=== PATIENT | female | born 1985 | race Two or more races ===

== ENCOUNTER 2024-02-08 08:24 | Emergency (ER) | payer OTHER, MEDICAID ==
[~2024-02-08] VITALS: Ht 160 cm; Wt 70.0 kg
[2024-02-08 10:35] LABS: Urine Bacteria None Seen /hpf (None Seen)
[2024-02-08 10:51] LABS: Basophils # (auto) 0 10 ^3/uL (0-0.2); Basophils % (auto) 0.6 % (0.0-2.0); Eosinophils # (auto) 0.3 10 ^3/uL (0-0.8); Eosinophils % (auto) 4.6 % (0.0-7.0); Hematocrit 43.2 % (36.0-46.0); Hemoglobin 14.8 g/dL (12.2-16.2); Lymphocytes # (auto) 1.6 10 ^3/uL (0.4-5.4); Lymphocytes % (auto) 25.5 % (10.0-50.0); Mean Corpuscular Hemoglobin 32.9 pg (28.0-32.0); Mean Corpuscular Hgb Conc. 34.1 g/dL (32.0-36.0); Mean Corpuscular Volume 96.3 fL (80.0-100.0); Monocytes # (auto) 0.6 10 ^3/uL (0-1.3); Monocytes % (auto) 8.6 % (0.0-12.0); Neutrophils # (auto) 3.9 10 ^3/uL (1.6-8.6); Neutrophils % (auto) 60.7 % (37.0-80.0); Nucleated Red Blood Cells % 0.2 %; Red Blood Cells 4.49 10^6/uL (4.0-5.20); Red Cell Distribution Width 12.6 % (11.8-14.3); White Blood Cell 6.4 10^3/uL (4.4-10.8)
[2024-02-08] MEDS: SODIUM CHLORIDE 0.9% 1,000 ML IV ONE (10:55)
[2024-02-08 11:11] LABS: Alanine Aminotransferase 28 U/L (7-40); Albumin 4.5 g/dL (3.2-4.8); Alkaline Phosphatase 59 U/L (46-116); Anion Gap 7 (5-15); Aspartate Aminotransferase 22 U/L (13-40); BUN/Creatinine Ratio 10.3 (10.0-20.0); Bilirubin, Total 0.8 mg/dL (0.2-1.0); Blood Urea Nitrogen 7 mg/dL (9-23); Calcium 9.5 mg/dL (8.5-10.1); Carbon Dioxide 23 mmol/L (20-30); Chloride 109 mmol/L (98-107); Glucose 88 mg/dL (74-106); Potassium 3.9 mmol/L (3.5-5.1); Sodium 139 mmol/L (136-145); Total Protein 6.5 g/dL (5.7-8.2)
[2024-02-08 11:27] LABS: Urine Blood Negative /uL (Negative); Urine Clarity Turbid (Clear); Urine Color Light-Yellow (Yellow); Urine Protein, UAD Negative (Negative); Urine Specific Gravity 1.015 (1.001-1.035); Urine Urobilinogen Normal (Negative); Urine WBC 1 /hpf (0 - 5); Urine pH 8.5 (5.0-9.0)
[2024-02-08 12:03] LABS: Lipase 36 U/L (12-53)
[2024-02-08] MEDS: cefTRIAXone 1GM/50ML D5W 50 ML IV ONE (13:03)
[2024-02-08] MEDS: fentaNYL CITRATE 100 MCG/2 ML VL IV ONE (13:41)
[2024-02-08 13:43] LABS: Amphetamine Screen, Urine Neg (NEGATIVE); Barbiturate Scree,Urine Neg (NEGATIVE); Benzodiazephine Screen, Urine Neg (NEGATIVE); Cocaine Screen, Urine Neg (NEGATIVE)
[2024-02-08 13:44] LABS: Cannabinoid Screen, Urine Neg (NEGATIVE); Opiate Scree,Urine Neg (NEGATIVE); Phencyclidine Screen, Urine Neg (NEGATIVE)
[2024-02-08 15:54] VITALS: TEMP 97.8; O2SAT 99
[2024-02-08 16:04] VITALS: BP 142/87; PULSE 87; RESP 16
== END 2024-02-08 17:57 | disposition home or self-care (01) ==
LOC: ER 08:24
DX: R10.9 Unspecified abdominal pain (principal); R11.2 Nausea with vomiting, unspecified; R19.7 Diarrhea, unspecified; K51.90 Ulcerative colitis, unspecified, without complications; Z98.51 Tubal ligation status; Z87.442 Personal history of urinary calculi
CPT/HCPCS: 36415; 74176; 80053; 80307; 81001; 83605; 83690; 84484; 85025; 93005; 96361; 96365; 96375; 99285; J0696; J3010; J7030

== ENCOUNTER 2024-05-24 10:02 | Emergency (ER) | payer OTHER, MEDICAID ==
[~2024-05-24] VITALS: Ht 160 cm; Wt 68.9 kg
[2024-05-24 10:59] LABS: Basophils # (auto) 0.1 10 ^3/uL (0-0.2); Basophils % (auto) 0.7 % (0.0-2.0); Eosinophils # (auto) 0.3 10 ^3/uL (0-0.8); Eosinophils % (auto) 4.3 % (0.0-7.0); Hematocrit 42.7 % (36.0-46.0); Hemoglobin 14.6 g/dL (12.2-16.2); Lymphocytes # (auto) 1.5 10 ^3/uL (0.4-5.4); Lymphocytes % (auto) 21.3 % (10.0-50.0); Mean Corpuscular Hemoglobin 33.9 pg (28.0-32.0); Mean Corpuscular Hgb Conc. 34.2 g/dL (32.0-36.0); Mean Corpuscular Volume 99.1 fL (80.0-100.0); Monocytes # (auto) 0.6 10 ^3/uL (0-1.3); Monocytes % (auto) 8.1 % (0.0-12.0); Neutrophils # (auto) 4.7 10 ^3/uL (1.6-8.6); Neutrophils % (auto) 65.6 % (37.0-80.0); Nucleated Red Blood Cells % 0.2 %; Red Blood Cells 4.31 10^6/uL (4.0-5.20); Red Cell Distribution Width 13.6 % (11.8-14.3); White Blood Cell 7.2 10^3/uL (4.4-10.8)
[2024-05-24 11:13] LABS: Chloride 109 mmol/L (98-107); Sodium 140 mmol/L (136-145)
[2024-05-24 11:14] LABS: Anion Gap 8 (5-15); Calcium 9.2 mg/dL (8.7-10.4); Carbon Dioxide 23 mmol/L (20-30)
[2024-05-24 11:19] LABS: BUN/Creatinine Ratio 9.9 (10.0-20.0); Blood Urea Nitrogen 8 mg/dL (9-23); Glucose 91 mg/dL (74-106)
[2024-05-24 11:29] LABS: Urine Bacteria FEW /hpf (None Seen); Urine Blood 3+ /uL (Negative); Urine Clarity Clear (Clear); Urine Color Light-Red (Yellow); Urine Protein, UAD 1+ (Negative); Urine Specific Gravity 1.007 (1.001-1.035); Urine Urobilinogen Normal (Negative); Urine WBC 10 /hpf (0 - 5); Urine pH 7.5 (5.0-9.0)
[2024-05-24 12:20] VITALS: BP 107/75; PULSE 81; RESP 12; TEMP 98.4; O2SAT 100
[2024-05-24] MEDS: KETOROLAC TROMETH 60MG/2ML VIAL IM ONE (12:20)
[2024-05-24] MEDS ORDERED: NAP500T PO (12:38)
== END 2024-05-24 12:44 | disposition home or self-care (01) ==
LOC: ER 10:02
DX: N92.0 Excessive and frequent menstruation with regular cycle (principal); Z32.02 Encounter for pregnancy test, result negative; Z98.51 Tubal ligation status
CPT/HCPCS: 36415; 76830; 76856; 80048; 81001; 81025; 85025; 96372; 99285; J1885

== ENCOUNTER 2024-12-16 08:49 | Emergency (ER) | payer MEDICAID, OTHER ==
[~2024-12-16] VITALS: Ht 160 cm; Wt 68.0 kg
[~2024-12-16 08:49] MED LIST: NAP500T PO
[2024-12-16 09:15] LABS: Urine Bacteria None Seen /hpf (None Seen)
[2024-12-16 09:25] VITALS: BP 118/71; PULSE 89; RESP 16; TEMP 98.2; O2SAT 98
[2024-12-16 09:41] LABS: Urine Blood Negative /uL (Negative); Urine Clarity Turbid (Clear); Urine Color Light-Yellow (Yellow); Urine Protein, UAD Negative (Negative); Urine Specific Gravity 1.018 (1.001-1.035); Urine Squamous Epithelial Cell MOD /hpf (<5); Urine Urobilinogen Normal (Negative); Urine WBC 3 /HPF (0-5); Urine pH 8.5 (5.0-9.0)
[2024-12-16] MEDS: cefTRIAXone SOD 1,000 MG VL IM ONE (10:11)
[2024-12-16] MEDS: KETOROLAC TROMETH 30 MG/ML 1ML VIAL IM ONE (10:11)
[2024-12-16] MEDS ORDERED: CIPR-173 PO (10:12)
--- NOTE | 2024-12-16 10:12 | ED.PDOC ---
TECHNICAL SUPPORT INTERNSHIP HPI Comments Patient complaining of vaginal pain that started at 3:00 a.m. this morning. States she tried to urinate and had diffuse vaginal and pelvic pain. States she tried to defecate and had similar pains with sitting. States the entire area is tender to the touch and even with just sitting. Unable to sit on her bottom. Patient denies any trauma to the area. Was sexually active three or four days ago. States her last menstrual was 12/01/2024. States she was vaginal disc for menstruation, she did remove and states no foreign body should be present. Patient denies any past history of vaginal pain like this. Nothing makes it better, Chief Complaint: Vaginal Bleed Time Seen by MD: 09:10 Reviewed Notes: Nurses Notes Allergies: Coded Allergies: NO KNOWN ALLERGIES (Unverified , 02/08/24) per patient Home Meds Active Scripts Naproxen (NAPROSYN TABLET) 500 Mg Tb, 1 TAB PO BID, #30 TAB Prov:CHERIE SUN 05/24/24 Information Source: Patient Past Medical History PAST MEDICAL HISTORY: Denies Surgical History: Tubal Ligation NATURAL GAS TRADER History: No Pertinent NATURAL GAS TRADER History Family History Family History: Reviewed,noncontributory to illness Social History Smoker: Non-Smoker Alcohol: Denies ETOH Use Drugs: Denies Drug Use Lives In: Home Constitutional: denies: chills, diaphoresis, fatigue, fever, malaise, sweats, weakness, others EENTM: denies: blurred vision, double vision, ear bleeding, ear discharge, ear drainage, ear pain, ear ringing, eye pain, eye redness, hearing loss, mouth pain, mouth swelling, nasal discharge, nose bleeding, nose congestion, nose pain, photophobia, tearing, throat pain, throat swelling, voice changes, others Respiratory: denies: cough, hemoptysis, orthopnea, SOB at rest, shortness of breath, SOB with excertion, stridor, wheezing, others Cardiovascular: denies: chest pain, dizzy spells, diaphoresis, Dyspnea on exertion, edema, irregular heart beat, left arm pain, lightheadedness, palpitations, PND, syncope, others Gastrointestinal: denies: abdomen distended, abdominal pain, blood streaked bowels, constipated, diarrhea, dysphagia, difficulty swallowing, hematemesis, melena, nausea, poor appetite, poor fluid intake, rectal bleeding, rectal pain, vomiting, others Genitourinary: reports: dyspareunia Neurological: denies: dizziness, fainting, headache, left sided numbness, left sided weakness, numbness, paresthesia, pre-existing deficit, right sided numbness, right sided weakness, seizure, speech problems, tingling, tremors, weakness, others Musculoskeletal: denies: back pain, gout, joint pain, joint swelling, muscle pain, muscle stiffness, neck pain, others Integumetry: denies: bruises, change in color, change in hair/nails, dryness, laceration, lesions, lumps, rash, wounds, others Physical Exam General Appearance: Moderate Distress, Normal HEENT: Normal ENT Inspection, Pharynx Normal, TMs Normal Neck: Full Range of Motion, Non-Tender, Normal, Normal Inspection Respiratory: Chest Non-Tender, Lungs Clear, No Accessory Muscle Use, No Respiratory Distress, Normal Breath Sounds Cardiovascular: No Edema, No JVD, No Murmur, No Gallop, Normal Peripheral Pulses, Regular Rate/Rhythm Breast Exam: Deferred Gastrointestinal: No Organomegaly, Non Tender, No Pulsatile Mass, Normal Bowel Sounds, Soft Genitalia: Deferred Pelvic: No Masses, Normal External Exam Rectal: Deferred Extremities: No calf tenderness, Normal capillary refill, Normal inspection, Normal range of motion, Non-tender, No pedal edema Musculoskeletal : Apperance: Normal Neurologic: Alert, bridge painter helper II-XII nml as Tested, No Motor Deficits, Normal Affect, Normal Mood, No Sensory Deficits Cerebellar Function: Normal Reflexes: Normal Skin: Dry, Normal Color, Warm Lymphatic: No Adenopathy Was a procedure done? Was a procedure done?: No Differential Diagnosis (NATURAL GAS TRADER) Vaginal Bleeding: Dysmenorrhea, Ectopic , Hormonal, Menorrhagia, UTI, Vaginitis X-Ray, Labs, Meds, VS Vital Signs Date Time Temp Pulse Resp B/P (MAP) Pulse Ox O2 Delivery O2 Flow Rate FiO2 12/16/24 09:25 89 16 98 Room Air 12/16/24 09:25 98.2 89 16 118/71 (87) 98 98.2 12/16/24 08:57 98.2 89 16 118/71 (87) 98 Lab Test 12/16/24 09:11 Range/Units Urine Color Light-yellow Yellow Urine Clarity Turbid H Clear Urine pH 8.5 5.0-9.0 Urine Specific [place] 1.018 1.001-1.035 Urine Protein Negative Negative Urine Ketones Negative Negative Urine Blood Negative Negative /uL Urine Nitrite Negative Negative Urine Bilirubin Negative Negative Urine Urobilinogen Normal Negative mg/dL Urine Leukocyte Esterase Trace Negative /uL Urine RBC 1 0 - 4 /hpf Urine Microscopic WBC 3 0-5 /HPF Urine Squamous Epithelial Cells Mod <5 /hpf Urine Bacteria None seen None Seen /hpf Urine Glucose Normal Normal mg/dL X-Ray, Labs, Meds, VS Comment Imaging: X-rays and CT scans were reviewed and interpreted by this provider, imaging shows no fractures and no pathological disease. Pending radiology review. Laboratory: Labs reviewed and interpreted by this provider. No significant abnormalities noted. Patient has prior medical visits reviewed. Med reconciliation performed Vital signs reviewed Time of 1ST Reevaluation: 10:12 Reevaluation 1ST: Improved Patient Education/Counseling: Diagnosis, Treatment, Need For Follow Up (Patient advised to follow up in 48 hours for recheck.) Family Education/Counseling: Diagnosis Departure 1 Departure Time of Disposition: 10:11 Impression: Primary Impression: Vaginal pain Disposition: 01 HOME / SELF CARE / HOMELESS Condition: Fair e-Prescriptions Ciprofloxacin Hcl (Cipro) 500 Mg Tab 1 TAB PO BID, #14 TAB Prov: NADINE HOSKINS 12/16/24 Discharged With: Self Critical Care Note Critical Care Time?: No Stability Stability form required: No Heart Score Heart Score: Heart Score Response (Comments) Value History N/A 0 EKG N/A 0 Age N/A 0 Risk Factors N/A 0 Troponin N/A 0 Total 0 NADINE HOSKINS Dec 16, 2024 10:12
== END 2024-12-16 10:19 | disposition home or self-care (01) ==
LOC: ER 08:49
DX: R10.2 Pelvic and perineal pain (principal); N93.9 Abnormal uterine and vaginal bleeding, unspecified; Z98.51 Tubal ligation status
CPT/HCPCS: 81001; 96372; 99284; J0696; J1885

== ENCOUNTER 2025-09-20 11:23 | Inpatient (IN) | payer OTHER, MEDICAID ==
[~2025-09-20] VITALS: Ht 160 cm; Wt 65.0 kg
[~2025-09-20 11:23] MED LIST changes: +CIPR-173 PO
--- NOTE | 2025-09-20 12:08 | ED.PDOC ---
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 PATIENT STATES SHE HAS BEEN EXPERIENCING PELVIC PAIN FOR THE PAST 3 DAYS. PATIENT REPORTS HER PAIN INITIALLY STARTED A MILD PRESSURE SENSATION, BUT BECAME WORSE TODAY, PROMPTING HER TO COME TO THE ED FOR EVALUATION. PATIENT NOTES THAT SHE WENT TO AN URGENT CARE PRIOR TO THIS ED VISIT 3 DAYS WHERE A URINE TEST WAS DONE WHICH WAS NORMAL, BUT WAS INSTRUCTED TO GO TO THE ED FOR A POSSIBLE ULTRASOUND. PATIENT DENIES DYSURIA, HEMATURIA, VAGINAL DISCHARGE, FLANK PAIN, FEVER, CHILLS, SHORTNESS OF BREATH, CHEST PAIN, ABDOMINAL PAIN, NAUSEA, VOMITING, HEADACHE, OR OTHER COMPLAINTS. NO OTHER SYMPTOMS OR MODIFYING FACTORS AT THIS TIME. PATIENT IS ALERT, ORIENTED X 4, AND HAS STEADY GAIT. Chief Complaint: Pelvic Pain Time Seen by MD: 11:31 Reviewed Notes: Nurses Notes, Medications, Allergies Allergies: Coded Allergies: NO KNOWN ALLERGIES (Unverified , 02/08/24) per patient Home Meds Active Scripts Ciprofloxacin Hcl (Cipro) 500 Mg Tab, 1 TAB PO BID, #14 TAB Prov:NADINE JACOB 12/16/24 Naproxen (NAPROSYN TABLET) 500 Mg Tb, 1 TAB PO BID, #30 TAB Prov:CHERIE SUN 05/24/24 Information Source: Patient Mode of Arrival: Ambulatory Timing: Days Prehospital treatment: None Severity: Mild, Moderate Vaginal Discharge: None Vaginal Lesions: None Vaginal Mass: None Onset Of Mass/Bleeding: Spontaneous Sexual Activity: Neither Last Consensual [place]: Unknown Control: None Blood Type: Unknown Symptoms of Possible : None Associated Signs and Symptoms: Other (PELVIC PAIN) Past Medical History PAST MEDICAL HISTORY: Anxiety, Asthma Surgical History: Tubal Ligation PRINCIPAL WEB DEVELOPER History: No Pertinent PRINCIPAL WEB DEVELOPER History Family History Family History: Reviewed,noncontributory to illness Social History Smoker: Non-Smoker Alcohol: Denies ETOH Use Drugs: Denies Drug Use Lives In: Home Constitutional: denies: chills, diaphoresis, fatigue, fever, malaise, sweats, weakness, others EENTM: denies: blurred vision, double vision, ear bleeding, ear discharge, ear drainage, ear pain, ear ringing, eye pain, eye redness, hearing loss, mouth pain, mouth swelling, nasal discharge, nose bleeding, nose congestion, nose pain, photophobia, tearing, throat pain, throat swelling, voice changes, others Respiratory: denies: cough, hemoptysis, orthopnea, SOB at rest, shortness of breath, SOB with excertion, stridor, wheezing, others Cardiovascular: denies: chest pain, dizzy spells, diaphoresis, Dyspnea on exertion, edema, irregular heart beat, left arm pain, lightheadedness, palpitations, PND, syncope, others Gastrointestinal: denies: abdomen distended, abdominal pain, blood streaked bowels, constipated, diarrhea, dysphagia, difficulty swallowing, hematemesis, melena, nausea, poor appetite, poor fluid intake, rectal bleeding, rectal pain, vomiting, others Genitourinary: reports: pain (PELVIC PAIN); denies: abnormal vagina bleeding, burning, dyspareunia, dysuria, flank pain, frequency, hematuria, incontinence, , vagina discharge, urgency, others Neurological: denies: dizziness, fainting, headache, left sided numbness, left sided weakness, numbness, paresthesia, pre-existing deficit, right sided numbness, right sided weakness, seizure, speech problems, tingling, tremors, weakness, others Musculoskeletal: denies: back pain, gout, joint pain, joint swelling, muscle pain, muscle stiffness, neck pain, others Integumetry: denies: bruises, change in color, change in hair/nails, dryness, laceration, lesions, lumps, rash, wounds, others Allergic/Immunocompromised: denies: Difficulty Healing, Frequent Infections, Hives, Itching, others Hematologic/Lymphatic: denies: anemia, blood clots, easy bleeding, easy bruising, swollen glands, others Endocrine: denies: excessive hunger, excessive sweating, excessive thirst, excessive urination, flushing, intolerance to cold, intolerance to heat, unexplained weight gain, unexplained weight loss, others Psychiatric: denies: anxiety, bipolar disorder, depression, hopeless, panic disorder, schizophrenia, sleepless, suicidal, others All Other Systems: Reviewed and Negative Physical Exam General Appearance: Mild Distress, Normal HEENT: Normal ENT Inspection, PERRL/EOMI, Pharynx Normal, TMs Normal Neck: Full Range of Motion, Non-Tender, Normal, Normal Inspection Respiratory: Chest Non-Tender, Lungs Clear, No Accessory Muscle Use, No Respiratory Distress, Normal Breath Sounds Cardiovascular: No Edema, No JVD, No Murmur, No Gallop, Normal Peripheral Pulses, Regular Rate/Rhythm Breast Exam: Deferred Gastrointestinal: LLQ, No Organomegaly, No Pulsatile Mass, Normal Bowel Sounds, Soft, Tenderness (ON LEFT LOWER ABD WITH GUARDING, NO REBOUND TENDERNESS. ) Genitalia: Deferred Pelvic: Normal External Exam, Tender Adnexa (TENDERNESS ON LEFT PELVIC AND SUPRAPUBIC REGION WITH GUARDING, NO REBOUND TENDERNESS. ) Rectal: Deferred Extremities: No calf tenderness, Normal capillary refill, Normal inspection, Normal range of motion, Non-tender, No pedal edema Musculoskeletal : Apperance: Normal Neurologic: Alert, lens generator II-XII nml as Tested, No Motor Deficits, Normal Affect, Normal Mood, No Sensory Deficits Cerebellar Function: Normal Reflexes: Normal Skin: Dry, Normal Color, Warm Peripheral Pulses: 2+ carotid (R), 2+ carotid (L) Lymphatic: No Adenopathy Was a procedure done? Was a procedure done?: No Differential Diagnosis (PRINCIPAL WEB DEVELOPER) Vaginal Bleeding: UTI, Vaginitis, Other (OVARIAN CYST, UTERINE FIBROID) Mass / Lesion: N/A Vaginal Discharge: Other (DIVERTICULITIS ), N/A X-Ray, Labs, Meds, VS Vital Signs Date Time Temp Pulse Resp B/P (MAP) Pulse Ox O2 Delivery O2 Flow Rate FiO2 09/20/25 15:18 98.6 74 18 127/59 (81) 99 98.6 09/20/25 12:20 75 15 99 Room Air 09/20/25 12:20 98.6 75 15 122/52 (75) 99 98.6 09/20/25 11:25 97.9 69 18 131/90 98 97.9 Lab Test 09/20/25 13:07 Range/Units White Blood Count 7.6 4.4-10.8 10^3/uL Red Blood Count 4.38 4.0-5.20 10^6/uL Hemoglobin 15.3 12.2-16.2 g/dL Hematocrit 43.3 36.0-46.0 % Mean Corpuscular Volume 98.7 80.0-100.0 fL Mean Corpuscular Hemoglobin 35.0 H 28.0-32.0 pg Mean Corpuscular Hemoglobin Concent 35.5 32.0-36.0 g/dL Red Cell Distribution Width 12.8 11.8-14.3 % Platelet Count 235 140-450 10^3/uL Mean Platelet Volume 9.1 6.9-10.8 fL Neutrophils (%) (Auto) 63.1 37.0-80.0 % Lymphocytes (%) (Auto) 18.9 10.0-50.0 % Monocytes (%) (Auto) 7.8 0.0-12.0 % Eosinophils (%) (Auto) 9.6 H 0.0-7.0 % Basophils (%) (Auto) 0.6 0.0-2.0 % Neutrophils # (Auto) 4.8 1.6-8.6 10 ^3/uL Lymphocytes # (Auto) 1.4 0.4-5.4 10 ^3/uL Monocytes # (Auto) 0.6 0-1.3 10 ^3/uL Eosinophils # (Auto) 0.7 0-0.8 10 ^3/uL Basophils # (Auto) 0 0-0.2 10 ^3/uL Nucleated Red Blood Cells 0.1 % Sodium Level 142 136-145 mmol/L Potassium Level 4.1 3.5-5.1 mmol/L Chloride Level 106 98-107 mmol/L Carbon Dioxide Level 25 20-31 mmol/L Anion Gap 11 5-15 Blood Urea Nitrogen 12 9-23 mg/dL Creatinine 0.75 0.550-1.02 mg/dL Glomerular Filtration Rate Calc 104 >90 mL/min BUN/Creatinine Ratio 16.0 10.0-20.0 Serum Glucose 83 74-106 mg/dL Calcium Level 9.8 8.7-10.4 mg/dL Current Medications Medications (Trade) Dose Ordered Sig/Erlin Route Start Time Stop Time Status Last Admin Ketorolac Tromethamine (Toradol Injection) 60 mg ONCE ONCE IM 09/20/25 15:15 09/20/25 15:16 DC 09/20/25 15:22 Sodium Chloride 1,000 ml @ 1,000 mls/hr Q1H ONCE IV 09/20/25 15:15 09/20/25 16:14 09/20/25 15:29 EXAM: US PELVIC HISTORY: LEFT PELVIC PAIN COMPARISON: US PELVIC on DOS: 05/24/24 TECHNIQUE: Transabdominal and transvaginal imaging was utilized. Grayscale and color doppler evaluation. Images were stored in the patient's permanent medical record. FINDINGS: UTERUS: 7.5 x 3.9 x 4.6 cm. Endometrial stripe: 0.5 cm. Homogeneous echotexture of the uterus. RIGHT OVARY: 3 x 2.2 x 2.4 cm.Normal vascularity. No suspicious masses or cysts. LEFT OVARY: 2.4 x 1.5 x 2.2 cm. Normal vascularity. No suspicious masses or cysts. OTHER: No free fluid is identified. IMPRESSION: 1. Unremarkable pelvic ultrasound. ATED BY: BOBBY SINGH MD DICTATED DATE/TIME: 09/20/25 1307 SIGNED BY: BOBBY SINGH MD SIGNED DATE/TIME: 09/20/25 1307 CC: Indication: LEFT LOWER ABD PAIN Technique: CT axial images of the abdomen and pelvis are obtained without contrast. Coronal and sagittal reformats were obtained. Radiation Dose Information: CTDI volume is 6.4 mGy. Dose-length product is 342 mGy*cm Comparison: CT CT AB PEL WO CON-NO ORAL OR IV on DOS: 02/08/24 FINDINGS: There is limited interpretation of the abdomen and pelvis without administration of intravenous contrast. Lung bases demonstrate no pleural effusion. Adrenal glands unremarkable in shape. Splenic calcification consistent with remote granulomatous disease. 2 cm splenic hypodense lesion. Pancreas, liver unremarkable in shape. No CT evidence for cholelithiasis. No hydronephrosis/ nephrolithiasis. Stomach partially distended. Small bowel loops are normal in caliber. Colonic diverticular disease. Stranding surrounding the sigmoid colon. Moderate volume stool in the colon. No secondary signs for appendicitis. Bladder partially distended. No free pelvic fluid. No inguinal lymp hadenopathy. No aggressive osseous process. IMPRESSION: Limited evaluation without contrast. Diverticulitis of the sigmoid colon. Recommend colonoscopy once acute symptoms resolve to exclude underlying colonic lesion. Splenic hypodense lesion measuring 2 cm, previously 2.9 cm. This can be better characterized with multiphasic MRI abdomen with and without contrast. Other findings as described. ATED BY: PA BALL MD DICTATED DATE/TIME: 09/20/25 1502 SIGNED BY: PA BALL MD SIGNED DATE/TIME: 09/20/25 6877 CC: X-Ray, Labs, Meds, VS Comment EXTERNAL MEDICAL RECORDS REVIEWED: [NONE] INDEPENDENT HISTORIANS: [NONE] SOCIAL DETERMINANTS OF HEALTH: [NONE] LABS ORDERED: CBC, BMP REVIEWED AND INTERPRETED RESULTS: NORMAL IMAGING ORDERED: US PELVIS, CT ABD/PEL TREATMENTS ORDERED: TORADOL 60MG IM, NS 1 L IV, LEVAQUIN 500 MG IV, FLAGYL 500 MG IV MORPHINE 4 MG IV, ZOFRAN 4 MG IV PROCEDURES PERFORMED: NONE CRITICAL CARE TIME: NONE I HAVE DISCUSSED THE PATIENT WITH THE ATTENDING PHYSICIAN DR. WOODY AND HE AGREES WITH THE PATIENT'S PLAN OF CARE. UPON MY PHYSICAL EXAMINATION, THE PATIENT HAD GUARDING BUT NO REBOUND TENDERNESS NOTED UPON PALPATION TO HER LOWER ABDOMINAL/SUPRAPUBIC REGION. LABS ORDERED FOR THE PATIENT AND THEY WERE WITHIN NORMAL LIMITS. AN ULTRASOUND OF THE PATIENT'S PELVIS WAS DONE IN HIS NORMAL. DUE TO THE PATIENT'S PERSISTENT PAIN I ORDERED A CT SCAN OF HER ABDOMEN AND PELVIS WHICH REVEALED ACUTE DIVERTICULITIS OF THE SIGMOID COLON. DUE TO THE PATIENT'S PERSISTENT PAIN DESPITE GIVING TORADOL FOR PAIN MEDICINE HERE IN THE ED AND HER CT SCAN RESULTS REVEALING ACUTE DIVERTICULITIS, I HAVE DETERMINED THE PATIENT NEEDS TO BE ADMITTED FOR FURTHER TREATMENT AND EVALUATION. THE ON-CALL HOSPITALIST WILL BE CONTACTED FOR ADMISSION OF THIS PATIENT. Images Reviewed?: Images reviewed and evaluated by me Time of 1ST Reevaluation: 15:30 Reevaluation 1ST: Unchanged Patient Education/Counseling: Diagnosis, Treatment Family Education/Counseling: Diagnosis, Treatment Departure 1 Departure Time of Disposition: 15:30 Impression: Primary Impression: Acute diverticulitis Additional Impression: Intractable abdominal pain Disposition: ADMITTED INPATIENT Condition: Serious Critical Care Note Critical Care Time?: No Stability Stability form required: No I personally scribed for CHERIE SUN ([email or web address]) on 09/20/25 at 12:08. Electronically submitted by Bora Mead ([email or web address]). I personally scribed for CHERIE SUN ([email or web address]) on 09/20/25 at 14:38. Electronically submitted by Bora Mead [email or web address]). I personally scribed for CHERIE SUN ([email or web address]) on 09/20/25 at 15:17. Electronically submitted by Bora Mead ([email or web address]). CHERIE SUN Sep 20, 2025 12:08
--- NOTE | 2025-09-20 13:09 | DVH ---
EXAM: US PELVIC HISTORY: LEFT PELVIC PAIN COMPARISON: US PELVIC on DOS: 05/24/24 TECHNIQUE: Transabdominal and transvaginal imaging was utilized. Grayscale and color doppler evaluation. Images were stored in the patient's permanent medical record. FINDINGS: UTERUS: 7.5 x 3.9 x 4.6 cm. Endometrial stripe: 0.5 cm. Homogeneous echotexture of the uterus. RIGHT OVARY: 3 x 2.2 x 2.4 cm.Normal vascularity. No suspicious masses or cysts. LEFT OVARY: 2.4 x 1.5 x 2.2 cm. Normal vascularity. No suspicious masses or cysts. OTHER: No free fluid is identified. IMPRESSION: 1. Unremarkable pelvic ultrasound.
[2025-09-20 13:52] LABS: Chloride 106 mmol/L (98-107); Potassium 4.1 mmol/L (3.5-5.1); Sodium 142 mmol/L (136-145)
[2025-09-20 13:53] LABS: Anion Gap 11 (5-15); Calcium 9.8 mg/dL (8.7-10.4); Carbon Dioxide 25 mmol/L (20-31)
[2025-09-20 13:58] LABS: BUN/Creatinine Ratio 16.0 (10.0-20.0); Blood Urea Nitrogen 12 mg/dL (9-23); Glucose 83 mg/dL (74-106); Hemoglobin 15.3 g/dL (12.2-16.2); Nucleated Red Blood Cells % 0.1 %
[2025-09-20 14:00] LABS: Hematocrit 43.3 % (36.0-46.0); Mean Corpuscular Hemoglobin 35.0 pg (28.0-32.0); Mean Corpuscular Volume 98.7 fL (80.0-100.0)
[2025-09-20] MEDS: KETOROLAC TROMETH 60MG/2ML VIAL ONE (14:17)
--- NOTE | 2025-09-20 14:59 | DVH ---
Indication: LEFT LOWER ABD PAIN Technique: CT axial images of the abdomen and pelvis are obtained without contrast. Coronal and sagittal reformats were obtained. Radiation Dose Information: CTDI volume is 6.4 mGy. Dose-length product is 342 mGy*cm Comparison: CT CT AB PEL WO CON-NO ORAL OR IV on DOS: 02/08/24 FINDINGS: There is limited interpretation of the abdomen and pelvis without administration of intravenous contrast. Lung bases demonstrate no pleural effusion. Adrenal glands unremarkable in shape. Splenic calcification consistent with remote granulomatous disease. 2 cm splenic hypodense lesion. Pancreas, liver unremarkable in shape. No CT evidence for cholelithiasis. No hydronephrosis/ nephrolithiasis. Stomach partially distended. Small bowel loops are normal in caliber. Colonic diverticular disease. Stranding surrounding the sigmoid colon. Moderate volume stool in the colon. No secondary signs for appendicitis. Bladder partially distended. No free pelvic fluid. No inguinal lymphadenopathy. No aggressive osseous process. IMPRESSION: Limited evaluation without contrast. Diverticulitis of the sigmoid colon. Recommend colonoscopy once acute symptoms resolve to exclude underlying colonic lesion. Splenic hypodense lesion measuring 2 cm, previously 2.9 cm. This can be better characterized with multiphasic MRI abdomen with and without contrast. Other findings as described.
[2025-09-20] MEDS: KETOROLAC TROMETH 60MG/2ML VIAL IM ONE (15:22)
[2025-09-20] MEDS: SODIUM CHLORIDE 0.9% 1,000 ML IV ONE (15:29)
--- NOTE | 2025-09-20 15:42 | DVHHPRES ---
History of Present Illness Resident Creating Document: SIN FRY History of Present Illness Lis Cobb is a 40 year old female patient who presents to the ED with chief complaint of constant stabbing pelvic pain and left lower quadrant abdominal pain which started 3 days ago and got progressively worse, worsens with bowel movements, associated with increased urinary frequency, chills and tenesmus. 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 Denies any other associated symptoms. Past medical history: Asthma, gastritis with ulcers diagnosed 10 years ago with EGD Surgical history: 12/2004 BTL with reversal in 03/2021. EGD 10 years ago Family history: Breast cancer grandmother, grandmother and grandfather heart disease. 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 Occasional alcohol. Denies current tobacco, alcohol and other drug abuse. Allergies: Seasonal Home medication: Albuterol, Naproxen Patient seen and examined at bedside. Currently continues complaining of abdomi nal pain. Admitted for further management, Past Medical History Per HPI Past Surgical History Per HPI Family History Per HPI Past Social History Per HPI Review of Systems Review of Systems Per HPI Allergies: Coded Allergies: NO KNOWN ALLERGIES (Unverified , 02/08/24) per patient Exam Vital Signs Vital Signs Date Time Temp Pulse Resp B/P (MAP) Pulse Ox O2 Delivery O2 Flow Rate FiO2 09/20/25 15:18 98.6 74 18 127/59 (81) 99 98.6 09/20/25 12:20 Room Air Exam Patient lying in bed, in no acute distress General: Lucid, afebrile, mucosae are dry Cardiovascular: Normal S1 and S2. No murmurs, gallops or rubs Respiratory: Normal ventilation mechanics. Clear lung sounds on auscultation Abdomen: Soft, tenderness on superficial palpation in all abdomen, especially in suprapubic and left lower quadrant, no rebound, no organomegaly, increased bowel sounds MSK/skin: Mobilizes 4 limbs. Skin is dry and warm Neurological: Oriented in 3 spheres. No motor no sensitive deficits. Pupils are isocoric and reactive Labs/Xrays Labs Test 09/20/25 13:07 Range/Units White Blood Count 7.6 4.4-10.8 10^3/uL Red Blood Count 4.38 4.0-5.20 10^6/uL Hemoglobin 15.3 12.2-16.2 g/dL Hematocrit 43.3 36.0-46.0 % Mean Corpuscular Volume 98.7 80.0-100.0 fL Mean Corpuscular Hemoglobin 35.0 H 28.0-32.0 pg Mean Corpuscular Hemoglobin Concent 35.5 32.0-36.0 g/dL Red Cell Distribution Width 12.8 11.8-14.3 % Platelet Count 235 140-450 10^3/uL Mean Platelet Volume 9.1 6.9-10.8 fL Neutrophils (%) (Auto) 63.1 37.0-80.0 % Lymphocytes (%) (Auto) 18.9 10.0-50.0 % Monocytes (%) (Auto) 7.8 0.0-12.0 % Eosinophils (%) (Auto) 9.6 H 0.0-7.0 % Basophils (%) (Auto) 0.6 0.0-2.0 % Neutrophils # (Auto) 4.8 1.6-8.6 10 ^3/uL Lymphocytes # (Auto) 1.4 0.4-5.4 10 ^3/uL Monocytes # (Auto) 0.6 0-1.3 10 ^3/uL Eosinophils # (Auto) 0.7 0-0.8 10 ^3/uL Basophils # (Auto) 0 0-0.2 10 ^3/uL Nucleated Red Blood Cells 0.1 % Sodium Level 142 136-145 mmol/L Potassium Level 4.1 3.5-5.1 mmol/L Chloride Level 106 98-107 mmol/L Carbon Dioxide Level 25 20-31 mmol/L Anion Gap 11 5-15 Blood Urea Nitrogen 12 9-23 mg/dL Creatinine 0.75 0.550-1.02 mg/dL Glomerular Filtration Rate Calc 104 >90 mL/min BUN/Creatinine Ratio 16.0 10.0-20.0 Serum Glucose 83 74-106 mg/dL Calcium Level 9.8 8.7-10.4 mg/dL SEPSIS Sepsis Screen Date sepsis recognized/suspect: Sep 20, 2025 Time Sepsis recognized/suspect: 1128 Recent Procedure: No On Antibiotic Therapy: No Respiratory Rate >20: No Heart Rate >90: No Temp<36 C (96.8 F) or >38.3 C: No SBP <90 or MAP <65 mmHG: No New Acute Mental Status Change: No Is the patient on CPAP, BIPAP,: No Physician Orders Pelvic (09/20/25 12:01) Ct Ab Pel Wo Con-No Oral Or Iv (09/20/25 14:13) Heplock Iv (09/20/25 ) Sodium Chloride 0.9% (09/20/25 15:15) Metronidazole 500mg/100ml (Flagyl 500mg/ (09/20/25 15:15) Levofloxacin 500mg (Levaquin 500mg/ 100m (09/20/25 15:15) Admit (09/20/25 15:35) Code Status (09/20/25 15:35) Acetaminophen Tablet (Tylenol Tablet) (09/20/25 15:45) Ondansetron Hcl (Zofran) (09/20/25 15:45) Complete Blood Count (09/21/25 04:00) Comprehensive Metabolic Panel (09/21/25 04:00) Npo (Nothing By Mouth) Diet (09/20/25 Dinner) Morphine Sulfate Injection (09/20/25 15:45) Lovenox 40mg (09/21/25 10:00) Oxygen By Nasal Cannula (09/20/25 15:35) Stat Ekg For Chest Pain (09/20/25 15:35) Notify Md Of Changes From Base (09/20/25 15:35) Music Industry Internship For 24 Hours (09/20/25 15:35) Emergency Dysrhythmia Protocol (09/20/25 15:35) Rhythm Strips Once Every Shift (09/20/25 15:35) Vitamin D, 25-Hydroxy (09/20/25 15:35) Vitamin B12 (09/20/25 15:35) Urinalysis (09/20/25 15:35) Thyroid Stimulating Hormone (09/20/25 15:35) PTPTT (09/20/25 15:35) Phosphorus (09/20/25 15:35) Magnesium (09/20/25 15:35) Lipid Panel (09/20/25 15:35) Lipase (09/20/25 15:35) Lactic Acid W/ Reflex Order (09/20/25 15:35) Hemoglobin A1c (09/20/25 15:35) Drug Screen (09/20/25 15:35) Ceftriaxone Ivpb Rocephin (09/21/25 09:00) Metronidazole Ivpb Flagyl (09/20/25 22:00) NS (09/20/25 15:45) Vital Signs Date Time Temp Pulse Resp B/P (MAP) Pulse Ox O2 Delivery O2 Flow Rate FiO2 09/20/25 15:18 98.6 74 18 127/59 (81) 99 98.6 09/20/25 12:20 75 15 99 Room Air 09/20/25 12:20 98.6 75 15 122/52 (75) 99 98.6 09/20/25: 97.9 69 18 131/90 98 97.9 Laboratory Tests Test 09/20/25 13:07 White Blood Count 7.6 10^3/uL (4.4-10.8) Medications Medications Dose Ordered Sig/Erlin Route Start Time Stop Time Status Last Admin Dose Admin Ketorolac Tromethamine 60 mg ONCE ONCE IM 09/20/25 15:15 09/20/25 15:16 DC 09/20/25 15:22 60 MG Sodium Chloride 1,000 ml @ 1,000 mls/hr Q1H ONCE IV 09/20/25 15:15 09/20/25 16:14 09/20/25 15:29 1,000 MLS/HR Assessment/Plan Assessment/Plan ASSESSMENT Acute diverticulitis Gastritis History of peptic ulcer Splenic cyst/granuloma Asthma, not exacerbated Reversal of tubal ligation PLAN Admitted to [facility] Completed abdomen and pelvis CT which evidences sigmoidal acute diverticulitis, and small splenic hypodense lesion which is smaller that CT of 2023 (cyst vs granuloma) Currently NPO, on IV fluids and empiric IV antibiotics (Ceftriaxone and Metronidazole) Ordered stool studies Non complicated diverticulitis, no need for surgical consult at the moment. If deemed necessary, evaluate GI consult. Ordered test (pelvic US within normal limits) On Pantoprazole MedNebs PRN Goals of care discussed with patient for over 18 minutes: Full code status Discussed case with Dr Main, patient and nurses: Currently on [facility] status. On bowel rest (NPO), IV fluids and IV antibiotics. Advance diet as tolerated. Pending stool tests. Plan discussed with: Patient, Other (Nurses) My Orders Orders - SIN FRY RESIDENT Procedure Category Date Status Time Admit ADMIT 09/20/25 Transmitted 15:35 Code Status CODE 09/20/25 Transmitted 15:35 Acetaminophen Tablet [facility] 09/20/25 Transmitted (Tylenol Tablet) 15:45 Ondansetron Hcl [facility] 09/20/25 Transmitted (Zofran) 15:45 Complete Blood Count LAB 09/21/25 Verified 04:00 Comprehensive LAB 09/21/25 Verified Metabolic Panel 04:00 Npo (Nothing By DIET 09/20/25 Transmitted Mouth) Diet Dinner Morphine Sulfate [facility] 09/20/25 Transmitted Injection 15:45 Lovenox 40mg [facility] 09/21/25 Transmitted 10:00 Oxygen By Nasal RT 09/20/25 Verified Cannula 15:35 Stat Ekg For Chest [facility] 09/20/25 Verified Pain 15:35 Notify Md Of Changes [facility] 09/20/25 Verified From Base 15:35 [employer] Internship For [facility] 09/20/25 Verified 24 Hours 15:35 Emergency Dysrhythmia [facility] 09/20/25 Verified Protocol 15:35 Rhythm Strips Once [facility] 09/20/25 Verified Every Shift 15:35 Vitamin D, 25-Hydroxy LAB 09/20/25 Verified 15:35 Vitamin B12 LAB 09/20/25 Verified 15:35 Urinalysis LAB 09/20/25 Verified 15:35 Thyroid Stimulating LAB 09/20/25 Verified Hormone 15:35 PTPTT LAB 09/20/25 Verified 15:35 Phosphorus LAB 09/20/25 Verified 15:35 Magnesium LAB 09/20/25 Verified 15:35 Lipid Panel LAB 09/20/25 Verified 15:35 Lipase LAB 09/20/25 Verified 15:35 Lactic Acid W/ Reflex LAB 09/20/25 Verified Order 15:35 Hemoglobin A1c LAB 09/20/25 Verified 15:35 Drug Screen LAB 09/20/25 Verified 15:35 Ceftriaxone Ivpb [facility] 09/21/25 Verified Rocephin 09:00 Metronidazole Ivpb [facility] 09/20/25 Verified Flagyl 22:00 NS [facility] 09/20/25 Verified 15:45 Date of Service: Sep 20, 2025 Billing Provider: ANAYELI MAIN MD Common Visit Codes: [id number] INP/OBS CARE (HIGH) Secondary Visit Codes: [id number] CARE PLAN 30 MINUTES SIN FRY RESIDENT Sep 20, 2025 15:42
[2025-09-20] MEDS ORDERED: ONDANSETRON HCL 4 MG/2 ML VIAL IV PRN (15:45)
[2025-09-20] MEDS: ONDANSETRON HCL 4 MG/2 ML VIAL IV ONE (15:55)
[2025-09-20] MEDS: MORPHINE SULFATE 4 MG/ML SYR/VIAL IV ONE (15:56)
[2025-09-20 15:59] LABS: Magnesium 1.9 mg/dL (1.6-2.6); Triglycerides 76.0 mg/dL (< 150)
[2025-09-20 16:01] LABS: Cholesterol 174.0 mg/dL (< 200)
[2025-09-20 16:08] LABS: HDL Cholesterol 75.0 mg/dL (40-59)
[2025-09-20 16:11] LABS: INR 1.03 (0.9-1.15); Partial Thromboplastin Time 31.0 SEC (24.5-34.5); Prothrombin Time 10.9 sec (9.3-11.8)
[2025-09-20 16:20] LABS: Lipase 34.0 U/L (12-53)
[2025-09-20 17:30] LABS: Urine Protein, UAD Negative (Negative)
[2025-09-20 17:40] VITALS: RESP 16; O2SAT 98
[2025-09-20 17:43] LABS: Opiate Scree,Urine Pos (NEGATIVE); Phencyclidine Screen, Urine Neg (NEGATIVE)
[2025-09-20 17:45] VITALS: BP 115/80; PULSE 60; RESP 18; TEMP 97.7; O2SAT 99
[2025-09-20 17:46] LABS: Amphetamine Screen, Urine Neg (NEGATIVE); Barbiturate Scree,Urine Neg (NEGATIVE); Benzodiazephine Screen, Urine Neg (NEGATIVE); Cannabinoid Screen, Urine Neg (NEGATIVE); Cocaine Screen, Urine Neg (NEGATIVE)
[2025-09-20] MEDS: SODIUM CHLORIDE 0.9% 1,000 ML IV SCH (18:21)
[2025-09-20] MEDS ORDERED: ALBU2TAB11 PO (18:30)
[2025-09-20] MEDS: MORPHINE SULFATE INJ 2 MG/ml SYRG IV PRN (20:01)
[2025-09-20 20:05] VITALS: RESP 16; O2SAT 97
[2025-09-20] MEDS ORDERED: IPRATROPIUM BROM 0.5 MG/2.5ML INH SOL NEB PRN (20:15)
[2025-09-20] MEDS ORDERED: ALBUTEROL SULF 2.5 MG/0.5ML(0.5%) NEB SOLN NEB PRN (20:15)
[2025-09-20 21:00] VITALS: BP 114/77; PULSE 63; RESP 18; TEMP 97.9; O2SAT 99
[2025-09-20 21:11] LABS: Alanine Aminotransferase 23.0 U/L (7-40); Alkaline Phosphatase 61.0 U/L (46-116); Bilirubin, Direct 0.3 mg/dL (<0.3); Bilirubin, Total 1.0 mg/dL (0.2-1.0); Total Protein 7.3 g/dL (5.7-8.2)
[2025-09-20 21:12] LABS: Albumin 4.8 g/dL (3.2-4.8)
[2025-09-20 22:08] VITALS: BP 115/80; PULSE 68; RESP 16; TEMP 97.7; O2SAT 95
[2025-09-20] MEDS: PANTOPRAZOLE 40 MG/10 ML VIAL INJ IV ONE (22:23)
[2025-09-20] MEDS: MORPHINE SULFATE INJ 2 MG/ml SYRG ONE (23:49)
[2025-09-21] VITALS (10 sets, daily range): BP systolic 96–118; BP diastolic 59–75; PULSE 67–84; RESP 16–21; TEMP 97.4–99.1; O2SAT 92–99
[2025-09-21] MEDS: MORPHINE SULFATE INJ 2 MG/ml SYRG ONE (05:51)
[2025-09-21 06:20] LABS: Hematocrit 37.7 % (36.0-46.0); Hemoglobin 13.1 g/dL (12.2-16.2); Mean Corpuscular Hemoglobin 34.4 pg (28.0-32.0); Mean Corpuscular Volume 98.7 fL (80.0-100.0); Nucleated Red Blood Cells % 0.0 %
[2025-09-21 06:39] LABS: Alanine Aminotransferase 15 U/L (7-40); Albumin 3.7 g/dL (3.2-4.8); Alkaline Phosphatase 49 U/L (46-116); Anion Gap 11 (5-15); BUN/Creatinine Ratio 17.5 (10.0-20.0); Bilirubin, Total 1.0 mg/dL (0.2-1.0); Blood Urea Nitrogen 11 mg/dL (9-23); Carbon Dioxide 21 mmol/L (20-31); Glucose 76 mg/dL (74-106); Potassium 3.6 mmol/L (3.5-5.1); Sodium 142 mmol/L (136-145)
[2025-09-21 06:46] LABS: Calcium 8.5 mg/dL (8.7-10.4); Chloride 110 mmol/L (98-107); Total Protein 5.6 g/dL (5.7-8.2)
[2025-09-21] MEDS: IPRATROPIUM BROM 0.5 MG/2.5ML INH SOL ONE (06:47)
[2025-09-21] MEDS: ALBUTEROL SULF 2.5 MG/0.5ML(0.5%) NEB SOLN ONE (06:47)
[2025-09-21] MEDS: ENOXAPARIN SOD 40 MG/0.4 ML SYRINGE SC SCH (10:00)
[2025-09-21] MEDS: PANTOPRAZOLE 40 MG/10 ML VIAL INJ IV SCH (11:34)
--- NOTE | 2025-09-21 17:17 | DVHPN2 ---
Subjective Patient's chart is reviewed. Clinically feeling better. However still some abdominal pain. Other review of systems reviewed normal Changes from previous H/P or p: No Changes Objective Vitals Vital Signs Date Time Temp Pulse Resp B/P (MAP) Pulse Ox O2 Delivery O2 Flow Rate FiO2 09/21/25 16:30 97.4 72 20 99/59 (72) 92 97.4 09/21/25 10:00 Room Air* 0 21 Intake/Output Intake and Output 09/21/25 07:00 Intake Total 1200 ml Balance 1200 ml IV Total 1200 ml # Voids 2 Exam Alert awake oriented x3. Comfortable in bed without distress. HEENT neck supple no JVD. Heart regular rate and rhythm S1-S2. Lungs fair air movement without rales wheezes. Abdomen soft minimal tenderness to palpation in the sigmoid region without any rebound or guarding. Positive active bowel sounds. Extremities no edema positive pulses. Medications Current Medications Medications Dose Ordered Sig/Erlin Route Start Time Stop Time Status Last Admin Dose Admin Acetaminophen 325 mg Q4HP PRN PO 09/20/25 15:45 Ondansetron HCl 4 mg Q4HP PRN IV 09/20/25 15:45 Morphine Sulfate 2 mg Q4HPRN PRN IV 09/20/25 15:45 09/21/25 15:57 2 MG Enoxaparin Sodium 40 mg DAILY SC 09/21/25 10:00 09/21/25 10:00 40 MG Ceftriaxone Sodium 50 ml @ 100 mls/hr DAILY@09 IV 09/21/25 09:00 09/21/25 11:36 100 MLS/HR Metronidazole 100 ml @ 100 mls/hr Q8HR IV 09/20/25 22:00 09/21/25 14:00 100 MLS/HR Sodium Chloride 1,000 ml @ 60 mls/hr [id number] IV 09/20/25 15:45 09/21/25 08:25 60 MLS/HR Albuterol 1.25 mg Q4HPRN PRN NEB 09/20/25 20:15 Ipratropium [place] 0.5 mg Q4HPRN PRN NEB 09/20/25 20:15 Pantoprazole Sodium 40 mg DAILY IV 09/21/25 10:00 09/21/25 11:34 40 MG Laboratory Results Laboratory Tests 09/21/25 05:34 Chemistry Test 09/21/25 05:34 Albumin 3.7 g/dL (3.2-4.8) Calcium Level 8.5 mg/dL (8.7-10.4) L Total Protein 5.6 g/dL (5.7-8.2) L LFT Test 09/21/25 05:34 Alanine Aminotransferase (ALT) 15 U/L (7-40) Alkaline Phosphatase 49 U/L (46-116) Aspartate Amino Transferase (AST) 11 U/L (13-40) L Total Bilirubin 1.0 mg/dL (0.2-1.0) Urinalysis Test 09/20/25 17:11 Urine Color Colorless (Yellow) Urine Clarity Clear (Clear) Urine pH 6.0 (5.0-9.0) Urine Specific [place] 1.007 (1.001-1.035) Urine Protein Negative (Negative) Urine Ketones Trace (Negative) Urine Blood Negative /uL (Negative) Urine Nitrite Negative (Negative) Urine Bilirubin Negative (Negative) Urine Urobilinogen Normal mg/dL (Negative) Urine Leukocyte Esterase Negative /uL (Negative) Urine RBC 1 /hpf (0 - 4) Urine Microscopic WBC 1 /HPF (0-5) Urine Squamous Epithelial Cells Few /hpf (<5) Urine Bacteria Few /hpf (None Seen) H Urine Glucose Normal mg/dL (Normal) Labs and/or images reviewed: Labs reviewed by me Assessment/Plan Assessment/Plan Continue current IV antibiotics and IV fluids. Continue pain management patient is some for his as needed. I will start her on ice chips with sips of water today. If pain improves by tomorrow consider starting her on clear liquid diet. Advised the patient that she needs elective colonoscopy after six weeks. Otherwise further clinical management per clinical course. Discussed with the patient as well as nurse at bedside regarding her care plan. Plan discussed with: Patient, Other My Orders Orders - CUBA LOU MD Procedure Category Date Status Time Npo Except Ice Chips LÓPEZ 09/21/25 In Process 16:32 Npo (Nothing By DIET 09/21/25 Transmitted Mouth) Diet Dinner Problem List: (1) Abdominal pain (2) Acute diverticulitis Date of Service: Sep 21, 2025 Billing Provider: CUBA LOU MD Common Visit Codes: [id number] INP/OBS CARE(MOD) CUBA LOU MD Sep 21, 2025 17:17
[2025-09-22] VITALS (8 sets, daily range): BP systolic 95–109; BP diastolic 62–66; PULSE 63–84; RESP 16–20; TEMP 97.5–98.2; O2SAT 96–99
[2025-09-22 06:46] LABS: Hematocrit 39.6 % (36.0-46.0); Hemoglobin 13.5 g/dL (12.2-16.2); Mean Corpuscular Hemoglobin 34.1 pg (28.0-32.0); Mean Corpuscular Volume 100.2 fL (80.0-100.0); Nucleated Red Blood Cells % 0.0 %
[2025-09-22 07:06] LABS: Alanine Aminotransferase 13 U/L (7-40); Albumin 3.9 g/dL (3.2-4.8); Alkaline Phosphatase 54 U/L (46-116); Anion Gap 16 (5-15); BUN/Creatinine Ratio 14.3 (10.0-20.0); Bilirubin, Total 0.9 mg/dL (0.2-1.0); Blood Urea Nitrogen 9 mg/dL (9-23); Potassium 4.1 mmol/L (3.5-5.1); Sodium 140 mmol/L (136-145); Total Protein 6.0 g/dL (5.7-8.2)
[2025-09-22 07:09] LABS: Calcium 8.7 mg/dL (8.7-10.4); Carbon Dioxide 16 mmol/L (20-31); Chloride 108 mmol/L (98-107)
[2025-09-22 07:11] LABS: Glucose 48 mg/dL (74-106)
--- NOTE | 2025-09-22 17:25 | DVHPN2 ---
Subjective Clinically doing well. No complaints. Apparently had an episode of hypoglycemia this morning due to NPO status however rest of her blood sugar has been normal after started on clear liquid diet. Patient's abdominal pain has improved. Changes from previous H/P or p: No Changes Objective Vitals Vital Signs Date Time Temp Pulse Resp B/P (MAP) Pulse Ox O2 Delivery O2 Flow Rate FiO2 09/22/25 12:44 97 Room Air 09/22/25 12:44 0 21 09/22/25 12:30 97.9 70 19 105/66 (79) 97.9 Intake/Output Intake and Output 09/22/25 07:00 Intake Total 1200 ml Balance 1200 ml Intake Oral 0 ml IV Total 1200 ml # Voids 3 Exam Alert awake oriented x3. Comfortable in bed without distress. HEENT neck supple no JVD. Heart regular rate and rhythm S1-S2. Lungs fair air movement without rales wheezes. Abdomen soft minimal tenderness to palpation in the sigmoid region without any rebound or guarding. Positive active bowel sounds. Extremities no edema positive pulses. Medications Current Medications Medications Dose Ordered Sig/Erlin Route Start Time Stop Time Status Last Admin Dose Admin Acetaminophen 325 mg Q4HP PRN PO 09/20/25 15:45 Ondansetron HCl 4 mg Q4HP PRN IV 09/20/25 15:45 Morphine Sulfate 2 mg Q4HPRN PRN IV 09/20/25 15:45 09/22/25 03:00 2 MG Enoxaparin Sodium 40 mg DAILY SC 09/21/25 10:00 09/22/25 08:34 40 MG Ceftriaxone Sodium 50 ml @ 100 mls/hr DAILY@09 IV 09/21/25 09:00 09/22/25 08:34 100 MLS/HR Metronidazole 100 ml @ 100 mls/hr Q8HR IV 09/20/25 22:00 09/22/25 14:43 100 MLS/HR Sodium Chloride 1,000 ml @ 60 mls/hr [id number] IV 09/20/25 15:45 09/22/25 03:03 60 MLS/HR Albuterol 1.25 mg Q4HPRN PRN NEB 09/20/25 20:15 Ipratropium [place] 0.5 mg Q4HPRN PRN NEB 09/20/25 20:15 Pantoprazole Sodium 40 mg DAILY IV 09/21/25 10:00 09/22/25 08:34 40 MG Laboratory Results Laboratory Tests 09/22/25 05:29 Chemistry Test 09/22/25 05:29 Albumin 3.9 g/dL (3.2-4.8) Calcium Level 8.7 mg/dL (8.7-10.4) Total Protein 6.0 g/dL (5.7-8.2) LFT Test 09/22/25 05:29 Alanine Aminotransferase (ALT) 13 U/L (7-40) Alkaline Phosphatase 54 U/L (46-116) Aspartate Amino Transferase (AST) 12 U/L (13-40) L Total Bilirubin 0.9 mg/dL (0.2-1.0) Urinalysis Test 09/20/25 17:11 Urine Color Colorless (Yellow) Urine Clarity Clear (Clear) Urine pH 6.0 (5.0-9.0) Urine Specific [place] 1.007 (1.001-1.035) Urine Protein Negative (Negative) Urine Ketones Trace (Negative) Urine Blood Negative /uL (Negative) Urine Nitrite Negative (Negative) Urine Bilirubin Negative (Negative) Urine Urobilinogen Normal mg/dL (Negative) Urine Leukocyte Esterase Negative /uL (Negative) Urine RBC 1 /hpf (0 - 4) Urine Microscopic WBC 1 /HPF (0-5) Urine Squamous Epithelial Cells Few /hpf (<5) Urine Bacteria Few /hpf (None Seen) H Urine Glucose Normal mg/dL (Normal) Labs and/or images reviewed: Labs reviewed by me Assessment/Plan Assessment/Plan Advance diet to soft and regular overnight. Continue current antibiotics IV while in the hospital and transitioned to oral antibiotics to finish the course and outpatient follow up with the GI for elective colonoscopy in 4-6 weeks. If she remains stable discharge plan to home tomorrow. Discussed with the patient along with the nurse at bedside regarding care plan. Plan discussed with: Patient, Other My Orders Orders - CUBA LOU MD Procedure Category Date Status Time Clear Liq Diet DIET 09/22/25 Transmitted Lunch Problem List: (1) Acute diverticulitis (2) Abdominal pain Date of Service: Sep 22, 2025 Billing Provider: CUBA LOU MD Common Visit Codes: [id number] INP/OBS CARE(MOD) CUBA LOU MD Sep 22, 2025 17:25
[2025-09-23] VITALS (10 sets, daily range): BP systolic 105–124; BP diastolic 59–93; PULSE 62–96; RESP 16–20; TEMP 97.6–99; O2SAT 96–99
--- NOTE | 2025-09-23 11:01 | DVHPN2 ---
Progress Note Date Seen: Sep 23, 2025 Medical Necessity Reason Pt with a Central, PICC or Fol: No Subjective Patient reports: No new complaints Review of Systems: HEENT:Normal, CVS:Normal, RESPIRATORY:Normal, GI:Normal, :Normal, MSK:Normal, NEURO:Normal Objective vital signs Vital Sign Date Time Temp Pulse Resp B/P (MAP) Pulse Ox O2 Delivery O2 Flow Rate FiO2 09/23/25 08:43 97.9 62 20 110/59 (76) 99 97.9 09/22/25 20:00 Room Air* 0 21 Total Intake and Output 09/22/25 09/22/25 09/23/25 15:00 23:00 07:00 Intake Total 1150 ml 900 ml Balance 1150 ml 900 ml medications Current Medications Medications Dose Ordered Sig/Erlin Route Start Time Stop Time Status Last Admin Dose Admin Acetaminophen 325 mg Q4HP PRN PO 09/20/25 15:45 Ondansetron HCl 4 mg Q4HP PRN IV 09/20/25 15:45 Morphine Sulfate 2 mg Q4HPRN PRN IV 09/20/25 15:45 09/22/25 03:00 2 MG Enoxaparin Sodium 40 mg DAILY SC 09/21/25 10:00 09/22/25 08:34 40 MG Ceftriaxone Sodium 50 ml @ 100 mls/hr DAILY@09 IV 09/21/25 09:00 09/23/25 09:33 100 MLS/HR Metronidazole 100 ml @ 100 mls/hr Q8HR IV 09/20/25 22:00 09/23/25 05:39 100 MLS/HR Sodium Chloride 1,000 ml @ 60 mls/hr [id number] IV 09/20/25 15:45 09/22/25 21:31 60 MLS/HR Albuterol 1.25 mg Q4HPRN PRN NEB 09/20/25 20:15 Ipratropium [place] 0.5 mg Q4HPRN PRN NEB 09/20/25 20:15 Pantoprazole Sodium 40 mg DAILY IV 09/21/25 10:00 09/23/25 09:33 40 MG Examination: GENERAL:Normal, HEENT:Normal, NECK:Normal, LUNGS:Normal, CVS:Normal, ABDOMEN:Normal, ABDOMEN:Abnormal (left lower abd tenderness), MSK:Normal, SKIN:Normal, NEURO:Normal, :Normal laboratory and microbiology Laboratory Tests 09/22/25 05:29 Test 09/22/25 05:29 Range/Units Serum Glucose 48 *L 74-106 mg/dL Problem List/Assessment/Plan Problem List/Assessment/Plan #1 acute diverticulitis: iv antibiotics, ivf #2 hypoglycemia: resolved Plan discussed with: Patient My Orders My Orders Orders - CHIQUI MARTINEZ MD Procedure Category Date Status Time Full Liq Diet DIET 09/23/25 Transmitted Lunch Complete Blood Count LAB 09/23/25 Verified 10:57 Comprehensive LAB 09/23/25 Verified Metabolic Panel 10:57 Date of Service: Sep 23, 2025 Billing Provider: CHIQUI MARTINEZ MD Common Visit Codes: [id number] INP/OBS CARE(HIGH) CHIQUI MARTINEZ MD Sep 23, 2025 11:01
[2025-09-23 12:07] LABS: Hematocrit 41.8 % (36.0-46.0); Hemoglobin 14.4 g/dL (12.2-16.2); Mean Corpuscular Hemoglobin 34.1 pg (28.0-32.0); Mean Corpuscular Volume 99.0 fL (80.0-100.0); Nucleated Red Blood Cells % 0.1 %
[2025-09-23 12:17] LABS: Alanine Aminotransferase 24 U/L (7-40); Albumin 4.2 g/dL (3.2-4.8); Alkaline Phosphatase 54 U/L (46-116); Anion Gap 9 (5-15); Calcium 9.0 mg/dL (8.7-10.4); Carbon Dioxide 25 mmol/L (20-31); Glucose 104 mg/dL (74-106); Potassium 4.2 mmol/L (3.5-5.1); Sodium 144 mmol/L (136-145); Total Protein 6.5 g/dL (5.7-8.2)
[2025-09-23 12:18] LABS: Bilirubin, Total 0.4 mg/dL (0.2-1.0)
[2025-09-23 12:21] LABS: BUN/Creatinine Ratio 7.2 (10.0-20.0); Blood Urea Nitrogen < 5 mg/dL (9-23); Chloride 110 mmol/L (98-107)
[2025-09-23] MEDS: ACETAMINOPHEN 325 MG TAB PO PRN (14:57)
[2025-09-24 01:00] VITALS: BP 116/79; PULSE 79; RESP 19; TEMP 98.3; O2SAT 97
[2025-09-24 05:00] VITALS: BP 114/74; PULSE 63; RESP 20; TEMP 97.7; O2SAT 96
[2025-09-24 08:00] VITALS: PULSE 89; RESP 20
[2025-09-24 08:46] VITALS: O2SAT 100
[2025-09-24 09:00] VITALS: BP 105/74; PULSE 89; RESP 20; TEMP 98.5; O2SAT 95
--- NOTE | 2025-09-24 10:39 | DVHDS2 ---
Discharge Summary Date of Admission Sep 20, 2025 at 15:35 Date of Discharge: Sep 24, 2025 Labs/Diagnostic Data: Laboratory Results Test 09/23/25 11:30 09/22/25 09:49 09/20/25 17:17 09/20/25 17:11 White Blood Count 4.3 10^3/uL (4.4-10.8) Red Blood Count 4.23 10^6/uL (4.0-5.20) Hemoglobin 14.4 g/dL (12.2-16.2) Hematocrit 41.8 % (36.0-46.0) Mean Corpuscular Volume 99.0 fL (80.0-100.0) Mean Corpuscular Hemoglobin 34.1 pg (28.0-32.0) Mean Corpuscular Hemoglobin Concent 34.5 g/dL (32.0-36.0) Red Cell Distribution Width 12.7 % (11.8-14.3) Platelet Count 214 10^3/uL (140-450) Mean Platelet Volume 8.7 fL (6.9-10.8) Neutrophils (%) (Auto) 60.1 % (37.0-80.0) Lymphocytes (%) (Auto) 18.9 % (10.0-50.0) Monocytes (%) (Auto) 10.8 % (0.0-12.0) Eosinophils (%) (Auto) 9.0 % (0.0-7.0) Basophils (%) (Auto) 1.2 % (0.0-2.0) Neutrophils # (Auto) 2.6 10 ^3/uL (1.6-8.6) Lymphocytes # (Auto) 0.8 10 ^3/uL (0.4-5.4) Monocytes # (Auto) 0.5 10 ^3/uL (0-1.3) Eosinophils # (Auto) 0.4 10 ^3/uL (0-0.8) Basophils # (Auto) 0.1 10 ^3/uL (0-0.2) Nucleated Red Blood Cells 0.1 % Sodium Level 144 mmol/L (136-145) Potassium Level 4.2 mmol/L (3.5-5.1) Chloride Level 110 mmol/L (98-107) Carbon Dioxide Level 25 mmol/L (20-31) Anion Gap 9 (5-15) Blood Urea Nitrogen < 5 mg/dL (9-23) Creatinine 0.69 mg/dL (0.550-1.02) Glomerular Filtration Rate Calc 113 mL/min (>90) BUN/Creatinine Ratio 7.2 (10.0-20.0) Serum Glucose 104 mg/dL (74-106) Calcium Level 9.0 mg/dL (8.7-10.4) Total Bilirubin 0.4 mg/dL (0.2-1.0) Aspartate Amino Transferase (AST) 23 U/L (13-40) Alanine Aminotransferase (ALT) 24 U/L (7-40) Alkaline Phosphatase 54 U/L (46-116) Total Protein 6.5 g/dL (5.7-8.2) Albumin 4.2 g/dL (3.2-4.8) POC Glucose 106 mg/dl (70-106) Lactic Acid Level 0.3 mmol/L (0.4-2.0) Urine Color Colorless (Yellow) Urine Clarity Clear (Clear) Urine pH 6.0 (5.0-9.0) Urine Specific [place] 1.007 (1.001-1.035) Urine Protein Negative (Negative) Urine Ketones Trace (Negative) Urine Blood Negative /uL (Negative) Urine Nitrite Negative (Negative) Urine Bilirubin Negative (Negative) Urine Urobilinogen Normal mg/dL (Negative) Urine Leukocyte Esterase Negative /uL (Negative) Urine RBC 1 /hpf (0 - 4) Urine Microscopic WBC 1 /HPF (0-5) Urine Squamous Epithelial Cells Few /hpf (<5) Urine Bacteria Few /hpf (None Seen) Urine Glucose Normal mg/dL (Normal) Urine Opiates Screen Pos (NEGATIVE) Urine Fentanyl Screen Neg (NEGATIVE) Urine Barbiturates Screen Neg (NEGATIVE) Urine Phencyclidine Screen Neg (NEGATIVE) Urine Amphetamines Screen Neg (NEGATIVE) Urine Benzodiazepines Screen Neg (NEGATIVE) Urine Cocaine Screen Neg (NEGATIVE) Urine Cannabinoids Screen Neg (NEGATIVE) Test 09/20/25 13:07 09/20/25 05:45 Prothrombin Time 10.9 sec (9.3-11.8) Prothrombin Time INR 1.03 (0.9-1.15) Activated Partial Thromboplast Time 31.0 SEC (24.5-34.5) Hemoglobin A1c 4.7 % A1C (<5.7) Phosphorus Level 3.4 mg/dL (2.4-5.1) Magnesium Level 1.9 mg/dL (1.6-2.6) Direct Bilirubin 0.3 mg/dL (<0.3) Triglycerides Level 76 mg/dL (< 150) Cholesterol Level 174 mg/dL (< 200) LDL Cholesterol 90 mg/dL (< 100) HDL Cholesterol 75 mg/dL (40-59) Lipase 34 U/L (12-53) Vitamin B12 Level 463 pg/mL (211-911) Vitamin D 25-Hydroxy 33.6 ng/mL (30.0-100) Thyroid Stimulating Hormone (TSH) 0.74 uIU/mL (0.55-4.78) Beta HCG, Quantitative 0.9 mIU/mL (1.5-4.2) Stool for White Cells None seen Other Laboratory Tests 09/23/25 11:30 Brief Hx & Hospital Course: SEE DICTATED NOTE Condition at Discharge: Good Final Diagnosis/Problems List ACUTE DIVERTICULITIS Discharge Disposition: Home Discharge Instruct/Medications Diet: Regular Activity: No Restrictions, As Tolerated Follow Up/Referral: FU WITH PCP/GI Medications: SCRIPT TO PHARMACY Scheduled Ciprofloxacin Hcl (Cipro), 1 TAB PO BID Naproxen (Naprosyn Tablet), 1 TAB PO BID Scheduled PRN Albuterol Sulfate (Albuterol Sulfate), 2 MG PO Q6HP PRN for SHORTNESS OF BREATH, (Reported) Discharge Statement: "Patient was advised to return to the ER or call 911 if any headaches, dizziness, shortness of breath, chest pain, abdominal pain, bleeding, fevers, or worsening of medical condition. Patient was counseled about treatment plan, medications, possible side effects, patientverbalized understanding. All questions were answered to the best of my ability. This discharge took greater then 30 minutes in planning, reviewing documentation, counseling the patient, and discussing with other team members." ASSESSMENT ASSESSMENT Assessment ACUTE DIVERTICULITIS Date of Service: Sep 24, 2025 Billing Provider: CHIQUI MARTINEZ MD Common Visit Codes: [id number] DISCH DAY >30min CHIQUI MARTINEZ MD Sep 24, 2025 10:39
[2025-09-24] MEDS ORDERED: METR-344 PO (10:40)
[2025-09-24] MEDS ORDERED: LEVO500T91 PO (10:40)
--- NOTE | 2025-09-24 10:48 | DVHDS ---
DATE OF DISCHARGE: 09/24/2025 HISTORY OF PRESENT ILLNESS: The patient is a 40-year-old lady who was admitted with complaints of left lower quadrant pain that got increasingly worse with chills and tenesmus. HOSPITAL COURSE: The patient had a CT of the abdomen and pelvis that showed evidence of diverticulitis involving the sigmoid colon. The patient's pelvic ultrasound that was done was unremarkable. The patient was placed on intravenous antibiotics. She did become hypoglycemic that has resolved. The patient's tox screen was negative. The patient will now be discharged home to be on Levaquin 500 mg daily for 7 days, Flagyl 500 mg t.i.d. for 7 days. She is to follow up with GI for a followup colonoscopy. FINAL DIAGNOSES: * Acute diverticulitis. * Hypoglycemia. Time spent in discharge planning and review of plan with the patient and nursing was 38 minutes. MD SHAUN Munoz/QUITA TID: [id number] RECEIPT: [id number]
[2025-09-24 13:44] VITALS: BP 110/70; PULSE 87; RESP 18; TEMP 98; O2SAT 96
== END 2025-09-24 15:00 | disposition home or self-care (01) | DRG 392 ==
LOC: ER 11:23 → OVERFLOW 15:35 → EAST 15:41
PROVIDERS: ADMIT Internal Medicine; ATTEND Internal Medicine
DX: K57.32 Diverticulitis of large intestine without perforation or abscess without bleeding (principal); D73.4 Cyst of spleen; J45.909 Unspecified asthma, uncomplicated; K29.70 Gastritis, unspecified, without bleeding; E16.2 Hypoglycemia, unspecified; F41.9 Anxiety disorder, unspecified; Z98.51 Tubal ligation status; Z80.3 Family history of malignant neoplasm of breast; Z82.49 Family history of ischemic heart disease and other diseases of the circulatory system; Z87.11 Personal history of peptic ulcer disease
CPT/HCPCS: 36415; 74176; 76830; 76856; 80048; 80053; 80061; 80076; 80307; 81001; 82306; 82607; 82962; 83036; 83605; 83690; 83735; 84100; 84443; 84702; 85025; 85048; 85610; 85730; 96365; 96368; 96372; 96375; G0378; J1885; J2470; J3490